=== PATIENT | male | born 2005 | race Caucasian/White ===

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

== ENCOUNTER → 2023-08-28 | Outpatient (CLI) | payer BC ==
--- NOTE | 2023-08-28 14:51 | Diagnostic Imaging Report ---
CLINICAL INDICATION: Patient injured ankle playing soccer. EXAM: X-ray of the left ankle, 3 views. COMPARISON: None. FINDINGS AND IMPRESSION: 1: There are a few nondisplaced lucencies involving the posterior process of the talus and a fracture in the region cannot be completely excluded. There appears to be fat stranding posterior to this region. Correlation for pain in this region would help better evaluate. If there is concern for fracture in this region, CT scan ankle would better evaluate. 2: There is no other concern for fracture or dislocation. 3: The remainder of this exam is unremarkable. Dictated by: Dictated on workstation # [id number]
== END ==
LOC: RAD 14:20
PROVIDERS: ATTEND Family Medicine
DX: M25.572 Pain in left ankle and joints of left foot (principal)
CPT/HCPCS: 73610